=== PATIENT | female | born 1990 | race Caucasian/White ===

== ENCOUNTER → 2017-12-11 14:49 | Outpatient (CLI) | payer SELFPAY ==
[2017-12-11 16:13] LABS: Color, Urine Straw (Yellow); Glucose, Dipstick Normal (Normal); Ketone-Dipstick Negative (Negative); Leukocyte Esterase-Dipstick 500 /ul (Negative); Nitrite-Dipstick Negative (Negative); Occult Blood-Urine 250 /ul (Negative); Protein-Dipstick 15 mg/dl (Negative); Specific Gravity, Urine 1.015 (1.002-1.030); Urine Bilirubin Dipstick Negative (Negative); Urine Clarity Cloudy (Clear); Urine Urobilinogen Normal (Normal); Urine pH 6.5 (5.0 - 8.0)
[2017-12-11 16:14] LABS: Absolute Lymphocyte Count 1.89 X10^3/ul (0.83-4.51); Absolute Neutrophil Count 7.2 X10^3/uL (2.0-7.7); Basophil# 0.02 X10^3/uL; Basophil% 0.2 % (0-1); Eosinophil# 0.06 X10^3/uL; Eosinophils% 0.6 % (0-5); Hematocrit 36.5 % (37-47); Hemoglobin 12.5 g/dl (12.0-15.0); Lymphocyte # 1.89 X10^3/ul (4.0); Lymphocyte % 19.4 % (19-41); Mean Corp Hgb Conc 34.2 g/gl (32-36); Mean Corpuscular Volume 90.6 fL (81-99); Mean Platelet Vol. 9.3 fl (6.2-12.0); Monocyte# 0.53 X10^3/uL; Monocyte% 5.5 % (0-10); Neutrophil # 7.21 X10^3/uL (2.7-7.7); Neutrophil % 74.2 % (47-70); Platelet Count 317 K/mm3 (150-450); RBC Distribution Width CV 13.2 % (11.6-14.6); RBC Distribution Width SD 43.2 fl (35.1-43.9); Red Blood Count 4.03 M/mm3 (4.2-5.4); White Blood Count 9.7 K/mm3 (4.4-11.0)
[2017-12-11 16:15] LABS: POSITIVE COUNT NO; POSITIVE DIFFERENTIAL NO; POSITIVE MORPHOLOGY NO
[2017-12-11 16:35] LABS: Thyroid Stim Hormone (TSH) 1.32 uIU/mL (0.358-3.74)
[2017-12-11 17:08] LABS: HIV - WCH Non-Reactive (Nonreactive); Rubella IgG 12.3 IU/mL
[2017-12-11 18:16] LABS: Chlamydia Trachomatis by PCR Negative (Negative); Neisserai gonorrhoeae by PCR Negative (Negative); Probe Check PASS; Sample Adequacy Control PASS; Specimen Processing Control PASS
[2017-12-13 05:01] LABS: Prenatal RPR NONREACTIVE (NONREACTIVE)
[2017-12-13 11:19] LABS: HEPATITIS B SURFACE AG Negative (Negative); Hep C Antibodies <0.1 s/co ratio (0.0-0.9)
[2017-12-17 11:10] LABS: HPV Reflexed? NOT INDICATED
== END ==
PROVIDERS: Visit Provider Obstetrics & Gynecology
DX: Z34.81 Encounter for supervision of other normal pregnancy, first trimester (principal); Z11.3 Encounter for screening for infections with a predominantly sexual mode of transmission; Z12.4 Encounter for screening for malignant neoplasm of cervix
CPT/HCPCS: 36415; 81002; 84443; 85025; 86703; 86762; 86803; 87340; 87491; 87591; 88175; G0145

== ENCOUNTER → 2018-04-17 13:30 | Outpatient (CLI) | payer SELFPAY ==
[2018-04-17 16:18] LABS: Hematocrit 31.6 % (37-47); Hemoglobin 10.4 g/dl (12.0-15.0); Mean Corp Hgb Conc 32.9 g/gl (32-36); Mean Corpuscular Hgb 30.4 pg (27.0-32.0); Mean Corpuscular Volume 92.4 fL (81-99); Mean Platelet Vol. 8.9 fl (6.2-12.0); Platelet Count 331 K/mm3 (150-450); RBC Distribution Width CV 12.2 % (11.6-14.6); RBC Distribution Width SD 39.8 fl (35.1-43.9); Red Blood Count 3.42 M/mm3 (4.2-5.4); White Blood Count 8.9 K/mm3 (4.4-11.0)
[2018-04-17 16:28] LABS: Scan Indicated on CBC? Y/N NO
[2018-04-17 16:58] LABS: Glucose Challenge Gest 1H 50g 109 mg/dL (70-140)
== END ==
PROVIDERS: Visit Provider Obstetrics & Gynecology
DX: Z34.83 Encounter for supervision of other normal pregnancy, third trimester (principal)
CPT/HCPCS: 82950; 85027

== ENCOUNTER 2018-06-23 05:30 | Inpatient (IN) | payer SELFPAY ==
[2018-06-23] VITALS (20 sets, daily range): BP systolic 87–104; BP diastolic 40–63; PULSE 66–79; RESP 16–18; TEMP 36.4–36.8; O2SAT 97–99; BMI 25.3
[2018-06-23] MEDS: Lactated Ringers 1,000 ML 999 ML IV (05:45)
[2018-06-23 06:18] LABS: Absolute Lymphocyte Count 2.25 X10^3/ul (0.83-4.51); Absolute Neutrophil Count 5.6 X10^3/uL (2.0-7.7); Basophil# 0.02 X10^3/uL; Basophil% 0.2 % (0-1); Eosinophil# 0.06 X10^3/uL; Eosinophils% 0.7 % (0-5); Hematocrit 31.8 % (37-47); Lymphocyte # 2.25 X10^3/ul (4.0); Mean Corp Hgb Conc 31.4 g/gl (32-36); Mean Corpuscular Hgb 27.3 pg (27.0-32.0); Mean Corpuscular Volume 86.9 fL (81-99); Mean Platelet Vol. 8.6 fl (6.2-12.0); Monocyte# 0.75 X10^3/uL; Monocyte% 8.7 % (0-10); Neutrophil # 5.56 X10^3/uL (2.7-7.7); Neutrophil % 64.2 % (47-70); Platelet Count 255 K/mm3 (150-450); RBC Distribution Width CV 13.6 % (11.6-14.6); Red Blood Count 3.66 M/mm3 (4.2-5.4); White Blood Count 8.7 K/mm3 (4.4-11.0)
[2018-06-23 06:27] LABS: POSITIVE COUNT NO; POSITIVE DIFFERENTIAL NO; POSITIVE MORPHOLOGY NO
[2018-06-23] MEDS: Lactated Ringers 1,000 ML 150 ML IV (06:45)
[2018-06-23] MEDS: Sodium Citrate/Citric Acid 30 ML UDC PO (07:00)
[2018-06-23] MEDS: Cefazolin 2 GM in 0.9% Normal Saline 100 ML IV (07:21)
--- NOTE | 2018-06-23 07:29 | PCM.OP.BLANK ---
Operative Report Date of Procedure: 06/23/18 Surgeon: Andrew Lizarraga MD, FACOG Executive Assistant To President: WILLOW Mack Anesthesia: Phil Polo CRNA Anesthesia: Spinal with Duramorph Pre-op Diagnosis: - -Prior Section Post-Op Diagnosis: - -Prior Section Procedure: Repeat Low Transverse Cervical Caesarean Section Findings: Viable male with Apgars of 9/9 in occiput anterior presentation with clear amniotic fluid and normal three-vessel placenta weighing 7 pounds 10 ounces. Indication: This is a 27-year-old who presents for her second at 39+ weeks gestation. care has otherwise been uneventful. The patient has been counseled regarding the risk and indications of this procedure including the possibility of bleeding infection and injury to surrounding structures such as bowel bladder. All questions were answered. Procedure: Patient was taken to the operating room where after spinal anesthesia was placed, the patient was prepped and draped in usual sterile fashion and a Bolivar catheter was placed. The abdomen was entered through the patient's prior Pfannenstiel incision and peritoneum was entered bluntly. After developing a bladder flap on the lower uterine segment a low transverse incision was made on the uterus and head was easily delivered onto the operative field the nose mouth and oropharynx were bulb suctioned. Subsequently a viable male infant was born with Apgars of 9/9. The was noted to cry move all extremities vigorously on the operative field. The umbilical cord was doubly clamped and ligated and infant handed to the nursery personnel who were present for the delivery. Placenta was delivered and noted to be 3 vessels and normal. Uterus was exteriorized and remaining placental tissue was removed. The uterus was then closed in 2 layers first with running locked 0 Vicryl suture followed by a second imbricating layer with 0 Vicryl suture. 0 Vicryl suture was then used in a horizontal mattress interrupted fashion to affect final hemostasis of the uterine incision line. Normal fallopian tubes and ovaries were visualized and the uterus was returned to the pelvis. Hemostasis was noted and rectus abdominis muscles were reapproximated in the midline with interrupted Number 0 Vicryl suture in a horizontal mattress fashion. Fascia was closed with running Number 1 PDS Strata fix suture. Subcutaneous tissue was irrigated with copious amounts of saline solution and then closed with running 3-0 Vicryl suture. Skin was closed with 4-0 monocryl suture in a running subcuticular fashion. Steri strips, telfa, and tape were placed across the incision. The patient tolerated the procedure well and was taken to the recovery room in satisfactory condition. Sponge, needle, and instrument counts were all reportedly correct. EBL was less than 500 cc. Ancef 2 gms IV was given prior to the procedure. Spicemen to Pathology: None Complications: None
--- NOTE | 2018-06-23 07:30 | DCINST_ITS ---
Discharge Diet: No Restrictions Discharge Activity: May not drive while taking narcotic pain medications., May Shower, May Take a Tub Bath May resume sexual activity in: 4-6 weeks Lifting Restrictions: 20 pounds Additional Activity Instructions:: Nothing in the vagina for 4-6 weeks. You may return to work/school in 6 weeks. Call your doctor if your incision/area has: Continuous Slow Oozing, Sudden Increased Bleeding, Increased Pain/ Swelling, Increased Redness, Foul Smelling Discharge Call your doctor if you observe: Fever of 101 or Higher, Inability to urinate, Inability to have a bowel movement, Using more than one pad per hour Additional Instructions: If you experience any of the following, contact your healthcare provider. * Bleeding that soaks a pad every hour for 2 hours * Unrelieved incision or abdominal pain * Swelling, redness, discharge or bleeding from your incision or episiotomy site * Your incision begins to separate * Problems urinating (including inability to urinate or burning while urinating). * Visual changes * Severe headache * Flu-like symptoms * Pain or redness in one of both of your breasts * Pain, warmth, tenderness or swelling in your legs, especially the calf area * Frequent nausea and vomiting * Symptoms of depression or anxiety If you experience any of the following, call 911 or go to the nearest Emergency Room. * Chest pain * Problems breathing * Seizure activity * Partial or complete paralysis of a body part, slurred speech, weakness or drooping of the face, or a sudden inability to walk or hold your balance Allergies/Adverse Reactions: Allergies chlorahexidine Allergy (Uncoded 06/23/18 05:47) Rash rash and itching Medications to take at Discharge Vits [Prenatabs FA ] 1 tablet PO DAILY 08/06/16 Docusate Sodium [Colace] 100 mg PO BID PRN PRN #30 capsule 08/22/16 Docusate Sodium [Colace] 100 mg PO DAILY PRN PRN #60 cap 06/23/18 Oxycodone [Oxyir] 5 mg PO Q6H PRN PRN 7 Days #20 tab 06/23/18 The following prescriptions were given: Oxycodone [Oxyir] 5 mg PO Q6H PRN PRN 7 Days #20 tab PRN Reason: Severe Pain (-10/10) Docusate Sodium [Colace] 100 mg PO DAILY PRN PRN #60 cap PRN Reason: Constipation Follow-Up: Call to make an appointment with your doctor for an incision check in 1-2 weeks. You will also need a 6 week post- follow up appointment. Test results from this visit will be discussed in further detail at your follow- up appointment, if applicable. Please Follow Up With: Andrew Lizarraga MD - [phone] When: Call to make an appointment for an incision check in 2 weeks. Primary Care Physician: Care Physician,No Primary [Primary Care Provider] -
[2018-06-23] MEDS: Oxytocin 30 units/NS 500 ml 30 UNITS/500 ML IV.SOLN 167 UNITS IV (07:47)
[2018-06-23] MEDS: Ketorolac 30 MG/ML Syringe IV ×2 (13:09→18:18)
[2018-06-23] MEDS: Lactated Ringers 1,000 ML 100 ML IV (15:42)
[2018-06-23] MEDS: Cefazolin 1 GM/50 ML BAG IV (15:42)
[2018-06-24] VITALS (7 sets, daily range): BP systolic 88–105; BP diastolic 42–61; PULSE 68–98; RESP 16–18; TEMP 36.8–37.9; O2SAT 97–99
[2018-06-24] MEDS: Cefazolin 1 GM/50 ML BAG IV (00:11)
[2018-06-24] MEDS: Ketorolac 30 MG/ML Syringe IV ×4 (00:11→18:07)
[2018-06-24] MEDS: 0.9% Saline Lock 10 ML Syringe IV ×3 (06:06→18:07)
[2018-06-24 06:31] LABS: Hematocrit 26.4 % (37-47); Hemoglobin 8.3 g/dl (12.0-15.0); Mean Corp Hgb Conc 31.4 g/gl (32-36); Mean Corpuscular Hgb 27.8 pg (27.0-32.0); Mean Corpuscular Volume 88.3 fL (81-99); Mean Platelet Vol. 8.4 fl (6.2-12.0); Platelet Count 241 K/mm3 (150-450); RBC Distribution Width CV 13.4 % (11.6-14.6); RBC Distribution Width SD 40.9 fl (35.1-43.9); Red Blood Count 2.99 M/mm3 (4.2-5.4)
[2018-06-24 06:32] LABS: Scan Indicated on CBC? Y/N NO
--- NOTE | 2018-06-24 08:22 | PCM.PN.OB ---
Subjective: Patient without complaints. Tolerating diet well. Baby nursing okay but needs some help. Positive flatus. Pain well controlled. - Physical Exam Vital Signs AF, VSS Temp Pulse Resp BP Pulse Ox 98.6 F 68 16 93/49 L 97 06/24/18 07:30 06/24/18 07:30 06/24/18 07:30 06/24/18 07:30 06/24/18 07:30 Oxygen Flow Rate (L/min) 98 Oxygen Delivery Method Room Air Weight: 152 lb 1.903 oz Body Mass Index (BMI) 25.3 Intake and Output for Last 24 Hours 06/22/18 06/23/18 06/24/18 23:59 23:59 23:59 Intake Total 1887 / 1887 2450 / 2450 Output Total 4300 / 4300 1500 / 1500 Balance -2413 / -2413 950 / 950 Laboratory Tests Past 24 Hrs 06/23/18 06/24/18 06:00 06:15 WBC 10.0 RBC 2.99 L Hgb 8.3 L Hct 26.4 L MCV 88.3 MCH 27.8 MCHC 31.4 L RDW 13.4 RDW Differential 40.9 Plt Count 241 MPV 8.4 Blood Type A POSITIVE Antibody Screen NEGATIVE Wound is clean, dry, intact. Good urine output. Hemoglobin okay. Minimal vaginal bleeding. Medical Necessity - Tobacco Use Smoking Status: Never smoker Assessment/Plan Doing well postoperative day #1 status post repeat . Continuing present care.
[2018-06-24] MEDS: Senna/Docusate Sodium 1 Tablet PO (08:56)
[2018-06-24] MEDS: oxyCODONE 5 MG Tablet PO ×2 (08:57→23:11)
[2018-06-24] MEDS: Acetaminophen 500 MG Tablet 1000 MG PO (19:44)
[2018-06-25] MEDS: Ibuprofen 600 MG Tablet PO ×2 (01:08→08:03)
[2018-06-25 02:10] VITALS: BP 93/46; PULSE 78; RESP 18; TEMP 36.7; O2SAT 96
[2018-06-25] MEDS: oxyCODONE 5 MG Tablet PO ×2 (05:04→09:27)
[2018-06-25 08:00] VITALS: BP 97/55; PULSE 81; RESP 20; TEMP 36.7; O2SAT 96
[2018-06-25] MEDS: Senna/Docusate Sodium 1 Tablet PO (08:04)
--- NOTE | 2018-06-25 09:09 | PCM.PN.OB ---
Subjective: Patient without complaints. Tolerating diet well. Ready to go home today. Breast-feeding going better. - Physical Exam Vital Signs Temp Pulse Resp BP Pulse Ox 98.0 F 78 18 93/46 L 96 06/25/18 02:10 06/25/18 02:10 06/25/18 02:10 06/25/18 02:10 06/25/18 02:10 Oxygen Flow Rate (L/min) 98 Oxygen Delivery Method Room Air Weight: 152 lb 1.903 oz Body Mass Index (BMI) 25.3 Intake and Output for Last 24 Hours 06/23/18 06/24/18 06/25/18 23:59 23:59 23:59 Intake Total 1887 / 1887 2450 / 2450 Output Total 4300 / 4300 3175 / 3175 Balance -2413 / -2413 -725 / -725 Medical Necessity - Tobacco Use Smoking Status: Never smoker Assessment/Plan Doing well postoperative day #2 status post repeat . Home-going instructions given. Return to office in 2-3 weeks.
== END 2018-06-25 13:00 | disposition home or self-care (01) | DRG 788 ==
PROVIDERS: Admitting Provider Obstetrics & Gynecology; Referring Provider Obstetrics & Gynecology; Visit Provider Obstetrics & Gynecology
DX: O34.211 Maternal care for low transverse scar from previous cesarean delivery (principal); N85.8 Other specified noninflammatory disorders of uterus; Z3A.39 39 weeks gestation of pregnancy; Z37.0 Single live birth
CPT/HCPCS: 85025; 85027; 86850; 86900; 99218; J7120; A4216; G0378

== ENCOUNTER → 2021-05-18 15:50 | Outpatient (CLI) | payer SELFPAY ==
[2021-05-18 17:52] LABS: Color, Urine Yellow (Yellow); Glucose, Dipstick Normal (Normal); Ketone-Dipstick Negative (Negative); Leukocyte Esterase-Dipstick 100 /ul (Negative); Nitrite-Dipstick Negative (Negative); Occult Blood-Urine Negative /ul (Negative); Protein-Dipstick Negative (Negative); Urine Bilirubin Dipstick Negative (Negative); Urine Clarity Clear (Clear); Urine Urobilinogen Normal (Normal)
[2021-05-18 17:53] LABS: Absolute Lymphocyte Count 2.28 X10^3/uL (0.83-4.51); Absolute Neutrophil Count 8.5 X10^3/uL (2.0-7.7); Basophil# 0.02 X10^3/uL; Basophil% 0.2 % (0-1); Eosinophil# 0.03 X10^3/uL; Eosinophils% 0.3 % (0-5); Hematocrit 38.2 % (37-47); Hemoglobin 12.8 g/dL (12.0-15.0); Lymphocyte # 2.28 X10^3/ul (0.83-4.51); Mean Corp Hgb Conc 33.5 g/dL (32-36); Mean Corpuscular Hgb 30.6 pg (27.0-32.0); Mean Corpuscular Volume 91.4 fL (81-99); Mean Platelet Vol. 9.4 fl (6.2-12.0); Monocyte# 0.55 X10^3/uL; Monocyte% 4.8 % (0-10); NRBC Flagged by Analyzer 0 % (0-5); Neutrophil # 8.48 X10^3/uL (2.7-7.7); Neutrophil % 74.3 % (47-70); Platelet Count 321 K/mm3 (150-450); RBC Distribution Width CV 13.1 % (11.6-14.6); RBC Distribution Width SD 43.6 fl (35.1-43.9); Red Blood Count 4.18 M/mm3 (4.2-5.4); White Blood Count 11.4 K/mm3 (4.4-11.0)
[2021-05-18 18:27] LABS: Thyroid Stim Hormone (TSH) 0.97 uIU/mL (0.358-3.74)
[2021-05-19 08:41] LABS: HIV - WCH Non-Reactive (Nonreactive); Hepatitis B Surface Antigen Non-Reactive (Nonreactive); Hepatitis C Antibody Non-Reactive (Nonreactive); Rubella IgG Equiv (Nonreactive); Syphilis Antibodies Non-reactive
[2021-05-22 19:07] LABS: Chlamydia By Nucleic Acid AMP Negative (Negative)
[2021-05-22 21:48] LABS: Gonococcus By Nucleic Acid AMP Negative (Negative)
[2021-05-25 14:05] LABS: HPV Reflexed? NOT INDICATED
== END ==
PROVIDERS: Visit Provider Obstetrics & Gynecology
DX: Z34.82 Encounter for supervision of other normal pregnancy, second trimester (principal); Z12.4 Encounter for screening for malignant neoplasm of cervix; Z11.3 Encounter for screening for infections with a predominantly sexual mode of transmission
CPT/HCPCS: 36415; 81002; 84443; 85025; 86703; 86762; 86780; 86803; 87086; 87340; 87491; 87591; 88175; G0145

== ENCOUNTER → 2021-08-23 09:47 | Outpatient (CLI) | payer SELFPAY ==
[2021-08-23 10:29] LABS: Glucose Challenge Gest 1H 50g 108 mg/dL (70-140)
[2021-08-23 10:30] LABS: Hemoglobin 10.6 g/dL (12.0-15.0); Mean Corp Hgb Conc 33.1 g/dL (32-36); Mean Corpuscular Volume 93.6 fL (81-99); Mean Platelet Vol. 8.8 fl (6.2-12.0); Platelet Count 295 K/mm3 (150-450); RBC Distribution Width CV 12.7 % (11.6-14.6); RBC Distribution Width SD 43.5 fl (35.1-43.9); Red Blood Count 3.42 M/mm3 (4.2-5.4); White Blood Count 9.5 K/mm3 (4.4-11.0)
== END ==
PROVIDERS: Visit Provider Obstetrics & Gynecology
DX: Z34.83 Encounter for supervision of other normal pregnancy, third trimester (principal)
CPT/HCPCS: 36415; 82950; 85027

== ENCOUNTER 2021-11-13 09:35 | Inpatient (IN) | payer SELFPAY ==
--- NOTE | 2021-11-12 12:56 | HP.PCM_ITS ---
History and Physical Date of Admission: 11/13/21 ACOG ANTEPARTUM RECORD - HISTORY AND PHYSICAL (11/12/2021) Name: SILVIA HAND History of this : This is a 30 year old [id number] presents at 39 wks + 2 days gestation for repeat . OB Physician: Andrew Lizarraga MD [facility] Physician: [facility] ...................................................................... : 1990 Age: 30 Address: [address] [place] [address] Phone: (h) [phone] (o) [phone] Insurance Carrier: Emergency Contact: ELKE MORE [phone] ...................................................................... Final ANNA: 11/17/21 By Ultrasound: 13 weeks 6 days PARITY: (G-Total Pregnancies P-Fullterm,Premature,Induced AB,Spont AB, Ectopics, Multiple,Living) ANNA CONFIRMATION: By LMP: 02/10/21 Initial Exam: 11/17/21 By First Ultrasound Exam: 11/17/21 Final ANNA: 11/17/21 OB PROBLEM LIST: Breastfeeidng planned EPDS today = 4 Genetic and carrier screening declined Prior for FTP--Plan R-LTCCS Recent loss of her mother (4 months ago, d/t breast cancer) ALLERGIES: NKDA MEDICATIONS: magnesium 250 mg tablet One pill by mouth once a day prn Shiloh 3-6-9 1,200 mg capsule One pill by mouth once a day PreNata 29 mg iron- 1 mg tablet,chewable SOCIAL HISTORY: Smoking - Never Alcohol Use - denies drinking Diet - moderate, balanced diet Lifestyle - low stress lifestyle, and recent in family Exercise - regular Employer - [employer] Job Description - Illicit Drug Use - denies use of street drugs Sexual Activity - Residence - lives with Place of - [place], [place] Spouse-Sig Other Name - Louis Spouse-Sig Other Occupation - Masonry Inspector Children Name(s) - Dedrick(16) Ren(18) PRIOR DELIVERY HISTORY DEL DATE GEST LAB WT LB WT OZ TYPE ANES LABOR TX Aug 10 41 36 8 9 C-Sec Epidural No 29 Oct 18 39 0 7 8 C-Sec Spinal No ANTEPARTUM FLOW CHART VISIT RTC FU F F NY U U DATE WK MD WKS HT PN HR M SS BP ED WT NY GL D EF ST __ ____ ___ __ __ ___ __ __ __ ___ __ __ __ ___ __ 16 Oct 38 JMW 3 38 + + 102/64 0 157 tr ne 11 Oct 38 CM 1 38 V + + 114/66 0 158 ne ne 04 Oct 37 JM 1 37 V + + 100/60 0 155 - - 24 Feb 35 JMW 1 35 + + 100/58 0 156 tr - 15 Sep JMW 2 34 + + 108/62 0 151 - - Sep 24 JMW 3 31 + + 116/62 0 151 ne ne Aug 21 JMW 3 27 + + 108/68 0 148 ne ne Jul 17 JMW 4 23 + + 102/68 0 143 - - Jun 12 JMW 5 18 + US 122/70 0 140 - - ANTEPARTUM NOTE(S): Nov 08 2021: Consent signed, Ensure given Nov 03 2021: FM well Oct 27 2021: no concerns, occ. ctx's Oct 19 2021: uncomfortable, declines GBS Oct 10 2021: doing well, Good FM Sep 13 2021: FM well, No complaints voiced Aug 23 2021: FM well, No complaints voiced, 1hgt/cbc today Jul 19 2021: Glucola/Instructions Given,Good FM Jun 22 2021: Sono, PNV and NOB Today, US OK COMPREHENSIVE ANTEPARTUM NOTE(S): Nov 03 2021: 38/0w. Repeat c/s 11/13. No GBS per Dr. Lizarraga. F/u 1w. CM Oct 27 2021: Silvia is here for a pnv at 37/0 w/ SO. Good FM. No edema present. Denies concerns/ questions. Occasional ctx's/ milo waters. MK Oct 27 2021: 37wks, no GBS collected by Dr. Lizarraga. JM Oct 19 2021: Plans R C/S. Declines GBS testing. Reviewed FM, SROM, and labor. LMT Oct 10 2021: Silvia is here for PNV she is 34w4d good FM no edema states she is doing well no concerns. BR Jun 22 2021: Silvia is here for her NOB visit following US and PNV with Dr. Lizarraga; she is a with an ANNA of 11/17/2021, and current GA is 18 w 6 d. She is accompanied by her , Louis , today and he seems to be supportive. Silvia and Louis have two sons at home, both delivered by C/S. She plans a repeat C/S at [facility], and will breastfeed. Past history updated. Silvia states that she is feeling we May 18 2021: Siliva presents here today for Missed Menses appointment. 30 y.o. G 3 P 2 non-smoker with regular menses and LMP of 06-18-21 lasting her average of 5-6 days. UPT is positive today in our Office. Denies spotting/bleeding thus far in . Presents at approximately 14 weeks 6 days with an EDC of 11/17/21. Plans repeat at [facility]. Currently taking an OTC Vitamin and Educational Ma May 18 2021: ok REVIEW OF SYSTEMS: GENERAL - Denies fever, or chills SKIN - Denies rash, new skin lesions, or change in moles EYES - Denies blurred vision, or change in visual acuity EARS - Denies ear pain, or difficulty hearing NOSE - Denies nasal congestion, discharge, or bleeding MOUTH - Denies sore throat, or difficulty swallowing NECK - Denies pain or swelling RESPIRATORY - Denies shortness of breath, cough, wheezing CARDIOVASCULAR - Denies palpitations, chest pain, orthopnea, PND, peripheral edema, syncope or claudication GASTROINTESTINAL - Denies nausea, vomiting, diarrhea, constipation, Denies abdominal pain, melena and or bright red blood GENITOURINARY - Denies dysuria, frequency of urination, urgency, or hesitancy MUSCULOSKELETAL - Denies joint or muscle pain, or back pain NEUROLOGICAL - Denies localized numbness, weakness, or tingling PSYCHIATRIC - Denies depression, anxiety, substance abuse or suicide attempts ENDOCRINE - Denies heat or cold intolerance, weight loss or gain, increasing thirst HEMATO-IMMUNOLOGIC - Denies easy bruising, bleeding, oral ulcerations or recurrent infections GENETICS SCREENING: Age 35+ years: No Thalassemia: No Neural Tube Defect: No Down Syndrome: No KRISTINE-SACHS: No Sickle Cell Disease: No Hemophilia: No Musc. Dystrophy: No Cystic Fibrosis: No-declines screening [place] Chorea: No Mental Retardation: No Fragile X: No Other genetic: No Other defects: No SABs/still births: No Drugs since LMP: No INFECTION HISTORY: High risk AIDS: No High risk Hepatitis: No Exposed to TB: No Exposed to Herpes: No Rash/viral illness since LMP: No History of STD: No MENSTRUAL HISTORY: *Menses Amount/Duration: 5-6 DAYSMenses Regularity: RegularFrequency: monthlyMenarche (Age Onset): 13* PAST SUMMARY: PARITY: 1. Total Pregnancies............ 3 2. Full Term Pregnancies........ 2 3. Premature.................... 0 4. Abortions - Induced.......... 0 5. Abortions - Spontaneous...... 0 6. Ectopics..................... 0 7. Multiple Births.............. 0 8. Living Children.............. 2 PAST #1: Date of :.................. 08/21/16 Gestation Weeks:................ 41 Length of labor(hours):......... 36 Sex:............................ M Weight-lbs:............... 8 Weight-oz:................ 9 Type of Delivery:............... C-Sect Type of Anesthesia:............. Epidural Place of Delivery:.............. [facility] Treatment of Labor?:.... No Comment: DECREASED FHR PAST #2: Date of :.................. 06/23/18 Gestation Weeks:................ 39 Length of labor(hours):......... 0 Sex:............................ M Weight-lbs:............... 7 Weight-oz:................ 8 Type of Delivery:............... C-Sect Type of Anesthesia:............. Spinal Place of Delivery:.............. [place] Treatment of Labor?:.... No Comment: PHYSICAL EXAMINATION General Appearence: 30 yo female in no acute distress Vital Signs: AF, VSS Heart: RRR without rubs or gallops Lungs: CTA x 2 Breasts: deferred Abdomen: gravid Pelvis: Cervix: Presentation: cephalic Station: Fetus: Size: AGA Movement: present Heart: present LAB TEST(S) ORDERED SINCE:02/20/21 08/23/2021 GLUCOSE CHALLENGE GEST 1H 50G 08/23/2021 CBC-COMPLETE BLOOD CNT NO DIFF 05/25/2021 PAP IG W/REFLEX HR HPV APTIMA 05/22/2021 CHLAMYDIA/GC ALISON APTIMA 05/21/2021 URINE CULTURE 05/19/2021 RUBELLA IGG 05/19/2021 L509.8000 05/19/2021 HIV - [facility] 05/19/2021 HEPATITIS C ANTIBODY 05/19/2021 HEPATITIS B SURFACE ANTIGEN 05/18/2021 URINALYSIS, ROUTINE (DIPSTICK) 05/18/2021 THYROID STIM HORMONE (TSH) 05/18/2021 T AND S-NO CHARGE W/PNP 05/18/2021 CBC W/DIFF, AUTOMATED == ==== Order Observation Description Value Ref_Range A* Site == ==== CBC-COMPLETE BL NOTE [facility] CBC-COMPLETE BL WBC 9.5 K/mm3 4.4-11.0 ML CBC-COMPLETE BL RBC 3.42 M/mm3 4.2-5.4 L ML CBC-COMPLETE BL HGB 10.6 g/dL 12.0-15.0 L ML CBC-COMPLETE BL HCT 32.0 37-47 L ML CBC-COMPLETE BL MCV 93.6 fL 81-99 ML CBC-COMPLETE BL MCH 31.0 pg 27.0-32.0 ML CBC-COMPLETE BL MCHC 33.1 g/dL 32-36 ML CBC-COMPLETE BL RDW CV 12.7 11.6-14.6 ML CBC-COMPLETE BL RDW SD 43.5 fl 35.1-43.9 ML CBC-COMPLETE BL PLT 295 K/mm3 150-450 ML CBC-COMPLETE BL MPV 8.8 fl 6.2-12.0 ML GLUCOSE CHALLEN NOTE [facility] GLUCOSE CHALLEN GLU GEST 50G 1H 108 mg/dL 70-140 ML URINE CULTURE NOTE [facility] HEPATITIS C ANT NOTE [facility] HEPATITIS C ANT HEPATITIS C AB Non-Reactive Nonreactive ML Non Reactive: < 0.8 Equivocal: >/= 0.8 to < 1.0 Reactive: >/= 1.0 The CDC recommends that a reactive/equivocal HCV antibody result be followed up by the HCV Nucleic Acid Amplification test (238347) HEPATITIS B HEBER NOTE [facility] HEPATITIS B HEBER HEP B SURF AG Non-Reactive Nonreactive ML HIV - [facility] NOTE [facility] HIV - [facility] HIV Non-Reactive Nonreactive ML L509.8000 NOTE [facility] L509.8000 SYPHILIS ABS Non-reactive ML RUBELLA IGG NOTE [facility] RUBELLA IGG RUBELLA IGG Equiv Nonreactive ML Antibody Results Interpretation of Immune Status Non Reactive Presumed Non-Immune Equivocal Equivocal Reactive Presumed Immune PN N [facility]~[address] [place], [address]~ T AND AB SCREEN GEL NEGATIVE ML THYROID STIM HO NOTE [facility] THYROID STIM HO TSH 0.97 uIU/mL 0.358-3.74 ML URINALYSIS, ROU NOTE [facility] URINALYSIS, ROU COLOR Yellow Yellow ML URINALYSIS, ROU URINE CLARITY Clear Clear ML URINALYSIS, ROU GLUCOSE, UR Normal mg/dl Normal ML URINALYSIS, ROU BILIRUBIN URINE Negative mg/dL Negative ML URINALYSIS, ROU KETONE UR Negative mg/dl Negative ML URINALYSIS, ROU SP.GR. DIPSTX 1.010 1.002-1.030 ML URINALYSIS, ROU PH UR 7.0 5.0 - 8.0 ML URINALYSIS, ROU PROT DIPSTX Negative mg/dl Negative ML URINALYSIS, ROU UROBILI Normal mg/dl Normal ML URINALYSIS, ROU NITRITE Negative Negative ML URINALYSIS, ROU OCCULT BLOOD-UR Negative /ul Negative ML URINALYSIS, ROU LEUK ESTERASE 100 /ul Negative A ML CBC W/DIFF, AUT NOTE [facility] CBC W/DIFF, AUT WBC 11.4 K/mm3 4.4-11.0 H ML CBC W/DIFF, AUT RBC 4.18 M/mm3 4.2-5.4 L ML CBC W/DIFF, AUT HGB 12.8 g/dL 12.0-15.0 ML CBC W/DIFF, AUT HCT 38.2 37-47 ML CBC W/DIFF, AUT MCV 91.4 fL 81-99 ML CBC W/DIFF, AUT MCH 30.6 pg 27.0-32.0 ML CBC W/DIFF, AUT MCHC 33.5 g/dL 32-36 ML CBC W/DIFF, AUT RDW CV 13.1 11.6-14.6 ML CBC W/DIFF, AUT RDW SD 43.6 fl 35.1-43.9 ML CBC W/DIFF, AUT PLT 321 K/mm3 150-450 ML CBC W/DIFF, AUT MPV 9.4 fl 6.2-12.0 ML CBC W/DIFF, AUT NEUT% 74.3 47-70 H ML CBC W/DIFF, AUT LY% 20.0 19-41 ML CBC W/DIFF, AUT MONO% 4.8 0-10 ML CBC W/DIFF, AUT EO% 0.3 0-5 ML CBC W/DIFF, AUT BASO% 0.2 0-1 ML CBC W/DIFF, AUT IG% 0.400 0.0-0.9 ML IG% - Immature Granulocytes (promyelocytes, myelocytes and metamyelocytes) > 1% indicates that a LEFT SHIFT is Present. CBC W/DIFF, AUT ABSOLUTE NEUT 8.5 X10 3/uL 2.0-7.7 H ML CBC W/DIFF, AUT ABSOLUTE LYMPH 2.28 X10 3/uL 0.83-4.51 ML CBC W/DIFF, AUT NUCLEATED RBC 0 0-5 ML PAP IG W/REFLEX NOTE [facility] PAP IG W/REFLEX DIAG Comment . [facility] NEGATIVE FOR INTRAEPITHELIAL LESION OR MALIGNANCY. PAP IG W/REFLEX ADEQ Comment . [facility] Satisfactory for evaluation. Endocervical and/or squamous metaplastic cells (endocervical component) are present. PAP IG W/REFLEX PERFORM Comment . [facility] Saima Olivo, Supervisory Rig Builder (ASCP) This liquid based ThinPrep(R) pap test was screened with the use of an image guided system. PAP IG W/REFLEX COMM . . [facility] PAP IG W/REFLEX PAPSMR Comment . [facility] The Pap smear is a screening test designed to aid in the detection of premalignant and malignant conditions of the uterine cervix. It is not a diagnostic procedure and should not be used as the sole means of detecting cervical cancer. Both false-positive and false-negative reports do occur. PAP IG W/REFLEX HPV RFLX Comment . [facility] The HPV DNA reflex criteria were not met with this specimen result therefore, no HPV testing was performed. CHLAMYDIA/GC NA NOTE [facility] CHLAMYDIA/GC NA CHLAMY,NUC ACID Negative Negative [facility] CHLAMYDIA/GC NA GC BY NUC ACID Negative Negative [facility] Performed at: =[address], [place] [id number] Document Control Clerk: Gladys Olguin MD, Phone: [phone] Culture exhibits no growth. A POSITIVE == ==== Impression /Plan: 39 wks + 2 days intrauterine for repeat . Preparations in progress for delivery.
[2021-11-13] VITALS (16 sets, daily range): BP systolic 96–108; BP diastolic 41–68; PULSE 60–93; RESP 15–17; TEMP 35.6–36.9; O2SAT 96–100; BMI 26.8
[2021-11-13] MEDS: Lactated Ringers 1,000 ML 999 ML IV (10:20)
[2021-11-13 10:35] LABS: Absolute Lymphocyte Count 1.75 X10^3/uL (0.83-4.51); Absolute Neutrophil Count 6.5 X10^3/uL (2.0-7.7); Basophil# 0.03 X10^3/uL; Basophil% 0.3 % (0-1); Eosinophil# 0.01 X10^3/uL; Eosinophils% 0.1 % (0-5); Hematocrit 29.5 % (37-47); Hemoglobin 9.5 g/dL (12.0-15.0); Lymphocyte # 1.75 X10^3/ul (0.83-4.51); Lymphocyte % 19.7 % (19-41); Mean Corp Hgb Conc 32.2 g/dL (32-36); Mean Corpuscular Hgb 27.9 pg (27.0-32.0); Mean Corpuscular Volume 86.8 fL (81-99); Mean Platelet Vol. 9.1 fl (6.2-12.0); Monocyte# 0.54 X10^3/uL; Monocyte% 6.1 % (0-10); NRBC Flagged by Analyzer 0 % (0-5); Neutrophil % 73.3 % (47-70); Platelet Count 226 K/mm3 (150-450); RBC Distribution Width CV 13.1 % (11.6-14.6); RBC Distribution Width SD 41.1 fl (35.1-43.9); White Blood Count 8.9 K/mm3 (4.4-11.0)
[2021-11-13] MEDS: Acetaminophen 500 MG Tablet 1000 MG PO ×2 (11:10→17:35)
[2021-11-13] MEDS: Lactated Ringers 1,000 ML 150 ML IV (11:27)
[2021-11-13] MEDS: Sodium Citrate/Citric Acid 30 ML UDC PO (11:51)
[2021-11-13] MEDS: Cefazolin 2 GM in 0.9% Normal Saline 100 ML IV (11:59)
--- NOTE | 2021-11-13 12:07 | EX.PCM.OBRPT ---
Maternal Data Information Final ANNA: 11/17/21 Final ANNA Source: US <20 weeks Gestational age: 39w3d Details Operative Information Date of Procedure: 11/13/21 Pre-Operative Diagnosis: Prior Section Post-Operative Diagnosis: Prior Section Classification: Scheduled Procedure Type: low transverse timber cutter #1: EnriquetamarianneMarlene darlinga Rachid Type of Anesthesia: Spinal (With Duramorph) Anesthesiologist: Phil Polo Antibiotic Given: Ancef 2 grams IV x1 Estimated Blood Loss: 500 cc Fluids Replaced: Crystalloid Findings Description of Procedure: Surgeon: Andrew Lizarraga MD, FACOG Procedure: Repeat Low Transverse Cervical Caesarean Section Findings: Viable female with Apgars of 9/9 in occiput posterior presentation with clear amniotic fluid and normal three-vessel placenta. Indication: This is a 30-year-old who presents for her third at 39+ weeks gestation. care has otherwise been uneventful. The patient has been counseled regarding the risk and indications of this procedure including the possibility of bleeding infection and injury to surrounding structures such as bowel bladder. All questions were answered. Procedure: Patient was taken to the operating room where after spinal anesthesia was placed, the patient was prepped and draped in usual sterile fashion and a Bolivar catheter was placed. The abdomen was entered through the patient's prior Pfannenstiel incision and peritoneum was entered bluntly. After developing a bladder flap on the lower uterine segment a low transverse incision was made on the uterus and head was easily delivered onto the operative field the nose mouth and oropharynx were bulb suctioned. Subsequently a viable female was born with Apgars of 9/9. Head was low in the pelvis with occiput posterior presentation and it was necessary to use Kiwi vacuum to assist with delivery of the head. The was noted to cry move all extremities vigorously on the operative field. The umbilical cord was doubly clamped and ligated and handed to the nursery personnel who were present for the delivery. Placenta was delivered and noted to be 3 vessels and normal. Uterus was exteriorized and remaining placental tissue was removed. The uterus was then closed in 2 layers first with running locked 0 Vicryl suture followed by a second imbricating layer with 0 Vicryl suture. 0 Vicryl suture was then used in a horizontal mattress interrupted fashion to affect final hemostasis of the uterine incision line. Normal fallopian tubes and ovaries were visualized and the uterus was returned to the pelvis. Hemostasis was noted and rectus abdominis muscles were reapproximated in the midline with interrupted Number 0 Vicryl suture in a horizontal mattress fashion. Fascia was closed with running Number 1 PDS Strata fix suture. Subcutaneous tissue was irrigated with copious amounts of saline solution and then closed with running 3-0 Vicryl suture. Skin was closed with 4-0 monocryl suture in a running subcuticular fashion. Steri strips and a Mepilex dressing were placed across the incision. The patient tolerated the procedure well and was taken to the recovery room in satisfactory condition. Sponge, needle, and instrument counts were all reportedly correct. EBL was 500 cc. Ancef 2 gms IV was given prior to the procedure. Spicemen to Pathology: None Complications: None Presentation: Positive for Vertex and ROP Amniotic Fluid Description: Clear Placental Delivery Description: Spontaneous Placenta Disposition: [facility] Cord Vessel Description: 3 Vessels Cord Entanglement: None A Gender: Female (1 minute): 9 (5 minute): 9 Complications Risks of Surgery Discussed w/Patient: Bleeding, Infection and Injury to surrounding structure(s) including bowel and bladder Complications: None
[2021-11-13] MEDS: Oxytocin 30 units/NS 500 ml 30 UNITS/500 ML IV.SOLN 167 UNITS IV (13:20)
[2021-11-13] MEDS: Ketorolac 30 MG/ML Syringe IV ×2 (14:08→19:44)
[2021-11-13] MEDS: Lactated Ringers 1,000 ML 100 ML IV (16:27)
[2021-11-13] MEDS: Cefazolin 1 GM/50 ML BAG IV (19:44)
[2021-11-14 00:25] VITALS: BP 93/51; PULSE 78; RESP 16; TEMP 36.3; O2SAT 96
[2021-11-14] MEDS: Acetaminophen 500 MG Tablet 1000 MG PO ×4 (01:07→19:14)
[2021-11-14] MEDS: Ketorolac 30 MG/ML Syringe IV ×2 (01:08→07:00)
[2021-11-14] MEDS: 0.9% Saline Lock 10 ML Syringe IV ×2 (01:08→05:16)
[2021-11-14 05:05] VITALS: BP 100/52; PULSE 79; RESP 16; TEMP 36.8; O2SAT 97
[2021-11-14] MEDS: Cefazolin 1 GM/50 ML BAG IV (05:16)
[2021-11-14 05:34] LABS: Hematocrit 26.4 % (37-47); Hemoglobin 8.6 g/dL (12.0-15.0); Mean Corp Hgb Conc 32.6 g/dL (32-36); Mean Corpuscular Hgb 28.3 pg (27.0-32.0); Mean Corpuscular Volume 86.8 fL (81-99); Platelet Count 204 K/mm3 (150-450); RBC Distribution Width CV 13.2 % (11.6-14.6); RBC Distribution Width SD 41.6 fl (35.1-43.9); Red Blood Count 3.04 M/mm3 (4.2-5.4); White Blood Count 10.7 K/mm3 (4.4-11.0)
[2021-11-14 08:25] VITALS: BP 96/49; PULSE 72; RESP 16; TEMP 36.8; O2SAT 95
--- NOTE | 2021-11-14 08:49 | PCM.PN.OB ---
Subjective Subjective Patient without complaints. Tolerating diet well. Positive flatus. Breast-feeding going well. Plans to go home tomorrow if baby is able to go. Denies any orthostatic changes. Objective Data Objective Data Vital Signs: Vital Signs Temp Pulse Resp BP Pulse Ox 98.3 F 72 16 96/49 L 95 11/14/21 08:25 11/14/21 08:25 11/14/21 08:25 11/14/21 08:25 11/14/21 08:25 Oxygen Delivery Method Room Air Weight: 161 lb 2.526 oz Body Mass Index (BMI) 26.8 Intake & Output: Intake and Output for Last 24 Hours 11/12/21 11/13/21 11/14/21 23:59 23:59 23:59 Intake Total 3261.67 / 3261.67 50 / 50 Output Total 4200 / 4200 1500 / 1500 Balance -938.33 / -938.33 -1450 / -1450 Lab / Micro Data Result Diagrams: 11/14/21 05:26 Labs: Laboratory Results - last 24 hr 11/13/21 10:20: WBC 8.9, RBC 3.40 L, Hgb 9.5 L, Hct 29.5 L, MCV 86.8, MCH 27.9, MCHC 32.2, RDW Std Deviation 41.1, RDW Coeff of Fanny 13.1, Plt Count 226, MPV 9.1, Immature Gran % (Auto) 0.500, Neut % (Auto) 73.3 H, Lymph % (Auto) 19.7, [place] % (Auto) 6.1, Eos % (Auto) 0.1, Baso % (Auto) 0.3, Absolute Neuts (auto) 6.5, Absolute Lymphs (auto) 1.75, Nucleated RBC % 0 11/13/21 10:20: Blood Type A POSITIVE, Antibody Screen NEGATIVE 11/14/21 05:26: WBC 10.7, RBC 3.04 L, Hgb 8.6 L, Hct 26.4 L, MCV 86.8, MCH 28.3, MCHC 32.6, RDW Std Deviation 41.6, RDW Coeff of Fanny 13.2, Plt Count 204, MPV 9.0 Micro: Microbiology 11/13/21 11:32 Nasal Secretion SARS-CoV-2 Antigen (Rapid) - Final Assessment & Plan (1) Previous section: PLAN: Doing well postoperative day #1 status post repeat section. Continuing present care.
[2021-11-14] MEDS: Senna/Docusate Sodium 1 Tablet PO (09:29)
[2021-11-14 12:14] VITALS: BP 104/68; PULSE 87; RESP 16; TEMP 36.8; O2SAT 98
[2021-11-14] MEDS: Ibuprofen 600 MG Tablet PO ×2 (13:21→19:13)
[2021-11-14 16:03] VITALS: BP 103/52; PULSE 81; RESP 14; TEMP 36.8; O2SAT 96
[2021-11-14 20:15] VITALS: BP 102/55; PULSE 82; RESP 16; TEMP 36.9
[2021-11-15 00:07] VITALS: BP 102/55; PULSE 73; RESP 16; TEMP 36.6
[2021-11-15] MEDS: Ibuprofen 600 MG Tablet PO ×2 (01:18→06:49)
[2021-11-15] MEDS: Acetaminophen 500 MG Tablet 1000 MG PO ×2 (01:18→06:49)
[2021-11-15 05:00] VITALS: BP 100/55; PULSE 75; RESP 16; TEMP 36.7
[2021-11-15 08:00] VITALS: BP 105/56; PULSE 80; RESP 16; TEMP 37.1; O2SAT 95
--- NOTE | 2021-11-15 09:03 | PCM.PN.OB ---
Subjective Subjective Patient without complaints. Tolerating diet well. Minimal vaginal bleeding reported. Wants to go home today. Objective Data Objective Data Vital Signs: Vital Signs Temp Pulse Resp BP Pulse Ox 98.7 F 80 16 105/56 L 95 11/15/21 08:00 11/15/21 08:00 11/15/21 08:00 11/15/21 08:00 11/15/21 08:00 Oxygen Delivery Method Room Air Weight: 161 lb 2.526 oz Body Mass Index (BMI) 26.8 Intake & Output: Intake and Output for Last 24 Hours 11/13/21 11/14/21 11/15/21 23:59 23:59 23:59 Intake Total 3261.67 / 3261.67 50 / 50 Output Total 4200 / 4200 1500 / 1500 Balance -938.33 / -938.33 -1450 / -1450 Lab / Micro Data Result Diagrams: 11/14/21 05:26 Micro: Microbiology 11/13/21 11:32 Nasal Secretion SARS-CoV-2 Antigen (Rapid) - Final Assessment & Plan (1) Previous section: PLAN: Doing well postoperative day #2 status post repeat section. Will discharge to home with routine instructions.
--- NOTE | 2021-11-15 09:04 | PCM.DC ---
Discharge Instructions Diet Discharge Diet: No restrictions Activity May resume sexual activity in: 4-6 weeks Lifting Restrictions: 20 pounds Dressing / Incision Call your doctor if your incision/area has: Continuous Slow Oozing, Sudden Increased Bleeding, Increased Pain/ Swelling, Increased Redness and Foul Smelling Discharge Call your doctor if you observe: Fever of 101 or Higher, Inability to urinate, Inability to have a bowel movement and Using more than 1 pad per hour Follow Up Care Please Follow Up With: Andrew Lizarraga MD When: Call [phone] for appointment to be seen in 2 weeks. Test Results: Test results from this visit will be discussed in further detail at your follow-up appointment, if applicable. Discharge Plan Admission Admit Date/Time: 11/13/21 09:35 Primary Reason for Your Visit: Repeat Attending Provider: Andrew Lizarraga Primary Care Provider: Care Physician,Delphine Primary Discharge Orders/Prescriptions Prescriptions: New oxycodone 5 mg capsule 5 mg PO Q6H PRN (Reason: pain (scale score 7-10)) 7 Days Qty: 7 RF: 0 docusate sodium 100 mg tablet 100 mg PO BID PRN (Reason: constipation) Qty: 60 RF: 1 Continued Prenatabs FA 1 TABLET tablet 1 tab PO DAILY RF: 0 omega-3 fatty acids Capsule 1 cap PO DAILY RF: 0 Referrals / Follow Up: Care Physician,No Primary [Primary Care Provider] - Disposition Disposition (needs filled in before D/C Order can be placed): Home, Self Care
[2021-11-15] MEDS: oxyCODONE 5 MG Tablet PO (11:30)
[2021-11-15] MEDS: Senna/Docusate Sodium 1 Tablet PO (11:30)
== END 2021-11-15 12:25 | disposition home or self-care (01) | DRG 788 ==
PROVIDERS: Admitting Provider Obstetrics & Gynecology; Visit Provider Obstetrics & Gynecology
PROC: 10D00Z1 Extraction of Products of Conception, Low, Open Approach (ICD-10-PCS; CPT 59514; principal; 2021-11-13 11:45)
DX: O34.219 Maternal care for unspecified type scar from previous cesarean delivery (principal); Z37.0 Single live birth; Z3A.39 39 weeks gestation of pregnancy
CPT/HCPCS: 59025; 59050; 85025; 85027; 86850; 86900; 86901; 87426; 99218; J7120; A4216; G0378